=== PATIENT | male | born 2000 | race Caucasian/White ===

== ENCOUNTER 2023-03-10 18:52 | Emergency (ER) | payer OTHER | END 2023-03-10 20:40 | disposition home or self-care (01) | LOC: CSHERS 18:52 | DX: H61.21 Impacted cerumen, right ear (principal); H60.501 Unspecified acute noninfective otitis externa, right ear; H73.91 Unspecified disorder of tympanic membrane, right ear; F17.290 Nicotine dependence, other tobacco product, uncomplicated | CPT/HCPCS: 99282 ==